=== PATIENT | female | born 1950 | race African-American/Black ===

== ENCOUNTER → 2016-05-02 | Outpatient (CLI) | payer MEDICARE, MEDICAID ==
[~2016-05-02] MED LIST: REGADENOSON 0.4 MG/5 ML IV ONE
== END | disposition home or self-care (01) ==
LOC: NM 07:51
PROVIDERS: ATTEND Internal Medicine Cardiovascular Disease
DX: R06.00 Dyspnea, unspecified (principal); I10 Essential (primary) hypertension; E11.9 Type 2 diabetes mellitus without complications
CPT/HCPCS: 78452; 93017; A9500; J2785